=== PATIENT | female | born 1995 | race Two or more races ===

== ENCOUNTER 2017-09-07 00:12 | Emergency (ER) | payer MEDICAID ==
[~2017-09-07] VITALS: Ht 167.6 cm; Wt 81.6 kg
[2017-09-07 01:06] VITALS: BP 135/75
[2017-09-07] MEDS ORDERED: HYDROcodone-ACET 7.5/325MG TAB PO ONE (02:30)
[2017-09-07] MEDS ORDERED: IBUPROFEN 600 MG TAB PO ONE (02:30)
[2017-09-07] MEDS ORDERED: SILVER SULFADIAZINE 1 % TOPICAL CREAM 50GM TOP ONE (02:30)
== END 2017-09-07 02:58 | disposition home or self-care (01) ==
LOC: ER 00:12
DX: S13.4XXA Sprain of ligaments of cervical spine, initial encounter (principal); M25.512 Pain in left shoulder; W22.8XXA Striking against or struck by other objects, initial encounter; Y93.89 Activity, other specified; Y92.89 Other specified places as the place of occurrence of the external cause; Y99.8 Other external cause status
CPT/HCPCS: 73030; 74176